=== PATIENT | male | born 1940 | race Caucasian/White ===

== ENCOUNTER 2024-04-30 08:34 | Emergency (ER) | payer OTHER, MEDICARE ==
[~2024-04-30] VITALS: Ht 167.6 cm; Wt 77.4 kg
[2024-04-30 08:36] VITALS: TEMP 97; O2SAT 98
[2024-04-30] MEDS ORDERED: ELIQ5TAB (12:06)
[2024-04-30] MEDS ORDERED: SIMV40TA20 (12:06)
[2024-04-30] MEDS ORDERED: NEXI10GR PO (12:07)
[2024-04-30] MEDS ORDERED: BACL10TA2 PO (12:30)
[2024-04-30] MEDS ORDERED: PRED20TA PO (12:30)
[2024-04-30 12:42] VITALS: BP 158/92
== END 2024-04-30 12:44 | disposition home or self-care (01) ==
LOC: M ED 08:34
DX: M54.32 Sciatica, left side (principal); I48.91 Unspecified atrial fibrillation; E78.5 Hyperlipidemia, unspecified; K21.9 Gastro-esophageal reflux disease without esophagitis; F10.10 Alcohol abuse, uncomplicated; Z91.09 Other allergy status, other than to drugs and biological substances; Z91.030 Bee allergy status; Z79.2 Long term (current) use of antibiotics; Z79.52 Long term (current) use of systemic steroids